=== PATIENT | female | born 1975 | race Caucasian/White ===

== ENCOUNTER 2021-02-03 18:10 | Inpatient (IN) ==
[2021-02-03] MEDS ORDERED: ASPIRIN 325 MG TABLET PO STA (18:57)
[2021-02-03] MEDS ORDERED: FUROSEMIDE 100 MG/10 ML VIAL IV STA (18:57)
[2021-02-03] MEDS ORDERED: MORPHINE 2 MG/1 ML SYRINGE IV STA (18:57)
[2021-02-03] MEDS ORDERED: ONDANSETRON 4 MG/2 ML VIAL IV STA (18:57)
[2021-02-03] MEDS ORDERED: ALBUTEROL NEB SOLN 5 MG/ML 20 ML/BOTTLE CONT NEB SCH (19:00)
[2021-02-03 19:11] LABS: Basophils % 0.4 % (0.0-0.8); Eosinophils % 0.1 % (0.00-10.9); Hemoglobin 13.2 GM/DL (12.0-16.0); Immature Granulocytes % 4.7 %; Immature Granulocytes Absolute 0.38 #; Lymphocytes % 12.1 % (21.3-54.2); Mean Corpuscular HGB Conc 34.7 GM/DL (32-36); Mean Corpuscular Volume 87.6 FL (87-102); Mean Platelet Volume 10.1 FL (9.6-12.0); Monocytes % 7.5 % (1.7-12.7); NRBC # 0.22 10*3/uL; Neutrophils % 75.2 % (38.7-73.9); Platelet Count 255 T/CUMM (130-400); Red Blood Count 4.34 MC/CUMM (3.8-5.5); Red Cell Distribution Width 14.1 % (9.3-17.3); White Blood Count 8.1 T/CUMM (4-12)
[2021-02-03 19:28] LABS: Albumin 3.1 G/DL (3.4-5.0); Bilirubin,Total 0.8 MG/DL (0.20-1.00); Calcium 8.7 MG/DL (8.5-10.1); Free T4 (Free Thyroxine) 1.21 NG/DL (0.76-1.46); Thyroid Stimulating Hormone 0.566 uIU/ml (0.358-3.74); Total Protein 5.7 G/DL (6.4-8.2)
[2021-02-03 19:35] LABS: Potassium 2.1 MMOL/L (3.5-5.1)
[2021-02-03] MEDS ORDERED: POTASSIUM CHLORIDE RIDER 10 MEQ/100 ML PREMIX IV ONE ×2 (19:46→19:47)
[2021-02-03] MEDS ORDERED: hydrALAZINE 20 MG/1 ML VIAL IV STA (19:58)
[2021-02-03] MEDS ORDERED: SPIRONOLACTONE 100 MG TABLET PO ONE (20:03)
[2021-02-03] MEDS ORDERED: POTASSIUM CHLORIDE 20 MEQ TABLET PO STA (20:04)
[2021-02-03] MEDS ORDERED: MAGNESIUM SULF RIDER 2 GM/50 ML PREMIX IV ONE (20:04)
[2021-02-03] MEDS ORDERED: DEXTROSE 50% 25 GM/50 ML VIAL IV PRN (20:08)
[2021-02-03] MEDS ORDERED: GLUCAGON 1 MG VIAL IM PRN (20:08)
[2021-02-03] MEDS ORDERED: ONDANSETRON 4 MG/2 ML VIAL IV PRN (20:08)
[2021-02-03] MEDS ORDERED: traZODone 50 MG TABLET PO PRN (20:11)
[2021-02-03] MEDS ORDERED: DOCUSATE SODIUM 100 MG CAPSULE PO PRN (20:11)
[2021-02-03 20:27] LABS: Bilirubin,Urine Negative (Negative); Blood, Urine Negative (Negative); Glucose,Urine (UA) >=500 mg/dL (Negative); Hyaline Casts,Urine 3 /LPF (0-3); Ketones,Urine Negative (Negative); Nitrite,Urine Negative (Negative); Protein,Urine Negative; RBC,Urine <1 /HPF (0-4); Squamous Epithelial Cell,Urine Occasional /HPF (0-10); Urine Appearance CLEAR (Clear); Urine Color Yellow (Yellow); Urine Specific Gravity 1.008 (1.001-1.035); Urine Urobilinogen < 2.0 EU/DL (0.2-1.0)
[2021-02-03] MEDS ORDERED: SPIRONOLACTONE 50 MG TABLET PO ONE (20:30)
[2021-02-03] MEDS ORDERED: SPIRONOLACTONE 50 MG TABLET PO SCH (21:00)
[2021-02-03] MEDS ORDERED: INSULIN GLARGINE 100 UNIT/ML SUBCUT SCH (21:00)
[2021-02-03 21:40] LABS: Calcium 8.9 MG/DL (8.5-10.1); Osmolality,Calculated 294.1 MOS/KG (273-304)
[2021-02-03 21:46] LABS: Potassium 1.9 MMOL/L (3.5-5.1)
[2021-02-03] MEDS ORDERED: POTASSIUM CHLORIDE 20 MEQ TABLET PO ONE (22:07)
[2021-02-03] MEDS: ACETYLCYSTEINE 600 MG CAPSULE PO SCH (22:23)
[2021-02-03] MEDS: LOSARTAN 25 MG TABLET PO SCH (22:23)
[2021-02-03] MEDS: carvediloL 25 MG TABLET PO SCH (22:24)
[2021-02-03] MEDS: ENOXAPARIN 40 MG/0.4 ML SYRINGE SUBCUT SCH (22:24)
[2021-02-03] MEDS: busPIRone 5 MG TABLET PO SCH (22:28)
[2021-02-03] MEDS: INSULIN REGULAR 100 UNIT/ML SUBCUT SCH (23:01)
[2021-02-03] MEDS: SODIUM CHLOR 0.45% KCL 20 MEQ 20 MEQ/1,000 ML BAG IV SCH (23:04)
[2021-02-04] MEDS: ALBUTEROL/IPRATROPIUM 3 ML NEB RESP TX SCH ×4 (00:22→19:10)
[2021-02-04 02:12] LABS: Basophils % 0.3 % (0.0-0.8); Hematocrit 35.6 VOL% (35.7-47.0); Hemoglobin 12.2 GM/DL (12.0-16.0); Immature Granulocytes % 3.3 %; Immature Granulocytes Absolute 0.24 #; Lymphocytes # 0.9 10*3/uL (1.4-4.0); Lymphocytes % 11.6 % (21.3-54.2); Mean Corpuscular HGB Conc 34.3 GM/DL (32-36); Mean Corpuscular Volume 88.6 FL (87-102); Mean Platelet Volume 9.7 FL (9.6-12.0); Monocytes % 9.3 % (1.7-12.7); NRBC # 0.15 10*3/uL; Neutrophils % 75.5 % (38.7-73.9); Platelet Count 230 T/CUMM (130-400); Red Blood Count 4.02 MC/CUMM (3.8-5.5); Red Cell Distribution Width 14.2 % (9.3-17.3); White Blood Count 7.3 T/CUMM (4-12)
[2021-02-04 02:31] LABS: Risk Ratio 5.47
[2021-02-04 02:45] LABS: Calcium 7.9 MG/DL (8.5-10.1); Osmolality,Calculated 298.1 MOS/KG (273-304)
[2021-02-04 02:50] LABS: Potassium 2.2 MMOL/L (3.5-5.1)
[2021-02-04] MEDS ORDERED: POTASSIUM CHLORIDE 20 MEQ TABLET PO ONE (02:55)
[2021-02-04 06:40] LABS: Calcium 7.9 MG/DL (8.5-10.1); Osmolality,Calculated 294.3 MOS/KG (273-304)
[2021-02-04 06:44] LABS: Potassium 2.1 MMOL/L (3.5-5.1)
[2021-02-04] MEDS: POTASSIUM CHLORIDE 20 MEQ TABLET PO PRN (06:59)
[2021-02-04] MEDS ORDERED: metFORMIN 500 MG TABLET PO SCH (08:00)
[2021-02-04] MEDS: busPIRone 5 MG TABLET PO SCH ×2 (08:57→21:32)
[2021-02-04] MEDS: carvediloL 25 MG TABLET PO SCH ×2 (08:57→21:32)
[2021-02-04] MEDS: INSULIN REGULAR 100 UNIT/ML SUBCUT SCH ×4 (08:57→21:31)
[2021-02-04] MEDS: POTASSIUM CHLORIDE 20 MEQ TABLET PO SCH ×3 (08:57→21:32)
[2021-02-04] MEDS: LOSARTAN 25 MG TABLET PO SCH ×2 (08:58→21:32)
[2021-02-04] MEDS: CITALOPRAM 20 MG TABLET PO SCH (08:58)
[2021-02-04] MEDS: ACETYLCYSTEINE 600 MG CAPSULE PO SCH ×2 (10:00→21:31)
[2021-02-04] MEDS ORDERED: INSULIN GLARGINE 100 UNIT/ML SUBCUT SCH (21:00)
[2021-02-04] MEDS: ENOXAPARIN 40 MG/0.4 ML SYRINGE SUBCUT SCH (21:30)
[2021-02-05] MEDS: SODIUM CHLOR 0.45% KCL 20 MEQ 20 MEQ/1,000 ML BAG IV SCH (00:08)
[2021-02-05] MEDS: ALBUTEROL/IPRATROPIUM 3 ML NEB RESP TX SCH ×4 (00:41→19:08)
[2021-02-05 05:17] LABS: Basophils % 0.4 % (0.0-0.8); Eosinophils % 0.1 % (0.00-10.9); Hemoglobin 12.2 GM/DL (12.0-16.0); Lymphocytes % 15.6 % (21.3-54.2); Mean Corpuscular HGB Conc 33.9 GM/DL (32-36); Mean Corpuscular Volume 92.1 FL (87-102); Mean Platelet Volume 9.6 FL (9.6-12.0); Monocytes % 8.2 % (1.7-12.7); Neutrophils % 69.7 % (38.7-73.9); Platelet Count 213 T/CUMM (130-400); Red Blood Count 3.91 MC/CUMM (3.8-5.5); Red Cell Distribution Width 14.6 % (9.3-17.3); White Blood Count 6.7 T/CUMM (4-12)
[2021-02-05 05:32] LABS: Calcium 8.1 MG/DL (8.5-10.1); Osmolality,Calculated 289.3 MOS/KG (273-304); Potassium 3.2 MMOL/L (3.5-5.1)
[2021-02-05 05:41] LABS: Band Neutrophils 3 % (0-10); Hypochromasia 1+; Lymphocytes 13 % (20-55); Microcytosis 1+; Nucleated Red Blood Cells 2 (0-5); Platelet Estimate Adequate; Segmented Neutrophils 78 % (50-85); Total Cells Counted 100
[2021-02-05] MEDS ORDERED: DIAZEPAM 5 MG TABLET PO ONE (09:25)
[2021-02-05] MEDS: INSULIN REGULAR 100 UNIT/ML SUBCUT SCH ×4 (10:38→22:43)
[2021-02-05] MEDS: CITALOPRAM 20 MG TABLET PO SCH (12:42)
[2021-02-05] MEDS: busPIRone 5 MG TABLET PO SCH ×2 (12:42→22:43)
[2021-02-05] MEDS: ACETYLCYSTEINE 600 MG CAPSULE PO SCH ×2 (12:43→22:42)
[2021-02-05] MEDS: carvediloL 25 MG TABLET PO SCH ×2 (12:43→22:43)
[2021-02-05] MEDS: SODIUM CHLORIDE 0.45% 1,000 ML IV SCH (12:43)
[2021-02-05] MEDS: POTASSIUM CHLORIDE 20 MEQ TABLET PO SCH ×2 (12:43→22:42)
[2021-02-05] MEDS: LOSARTAN 25 MG TABLET PO SCH (12:44)
[2021-02-05] MEDS: ACETAMINOPHEN 325 MG TABLET PO PRN (14:54)
[2021-02-05] MEDS: POTASSIUM CHLORIDE 20 MEQ TABLET PO PRN ×3 (14:54→18:04)
[2021-02-05] MEDS: metFORMIN 500 MG TABLET PO SCH (17:08)
[2021-02-05] MEDS: ENOXAPARIN 40 MG/0.4 ML SYRINGE SUBCUT SCH (22:43)
[2021-02-05] MEDS: INSULIN GLARGINE 100 UNIT/ML SUBCUT SCH (22:44)
[2021-02-06] MEDS: ALBUTEROL/IPRATROPIUM 3 ML NEB RESP TX SCH ×4 (00:32→20:16)
[2021-02-06 05:12] LABS: Basophils % 0.3 % (0.0-0.8); Eosinophils % 0.1 % (0.00-10.9); Hematocrit 37.2 VOL% (35.7-47.0); Hemoglobin 12.1 GM/DL (12.0-16.0); Immature Granulocytes % 6.9 %; Immature Granulocytes Absolute 0.54 #; Lymphocytes # 1.1 10*3/uL (1.4-4.0); Lymphocytes % 14.6 % (21.3-54.2); Mean Corpuscular HGB Conc 32.5 GM/DL (32-36); Mean Corpuscular Volume 93.5 FL (87-102); Mean Platelet Volume 10.4 FL (9.6-12.0); Monocytes % 6.8 % (1.7-12.7); NRBC # 0.15 10*3/uL; Neutrophils % 71.3 % (38.7-73.9); Platelet Count 214 T/CUMM (130-400); Red Blood Count 3.98 MC/CUMM (3.8-5.5); Red Cell Distribution Width 14.6 % (9.3-17.3); White Blood Count 7.8 T/CUMM (4-12)
[2021-02-06 05:44] LABS: Band Neutrophils 3 % (0-10); Eosinophils 1 % (0-10); Lymphocytes 12 % (20-55); Platelet Estimate Normal; Segmented Neutrophils 76 % (50-85); Total Cells Counted 100
[2021-02-06 05:50] LABS: Calcium 8.1 MG/DL (8.5-10.1); Osmolality,Calculated 286.4 MOS/KG (273-304); Potassium 3.8 MMOL/L (3.5-5.1)
[2021-02-06] MEDS: SODIUM CHLOR 0.45% KCL 20 MEQ 20 MEQ/1,000 ML BAG IV SCH ×2 (10:19→12:08)
[2021-02-06] MEDS: metFORMIN 500 MG TABLET PO SCH ×2 (10:21→17:03)
[2021-02-06] MEDS: ACETYLCYSTEINE 600 MG CAPSULE PO SCH ×2 (10:21→21:32)
[2021-02-06] MEDS: POTASSIUM CHLORIDE 20 MEQ TABLET PO PRN (10:21)
[2021-02-06] MEDS: busPIRone 5 MG TABLET PO SCH ×2 (10:22→21:32)
[2021-02-06] MEDS: carvediloL 25 MG TABLET PO SCH ×2 (10:22→21:32)
[2021-02-06] MEDS: LOSARTAN 50 MG TABLET PO SCH (10:22)
[2021-02-06] MEDS: CITALOPRAM 20 MG TABLET PO SCH (10:22)
[2021-02-06] MEDS: SODIUM CHLORIDE 0.45% 1,000 ML IV SCH (11:08)
[2021-02-06] MEDS: INSULIN REGULAR 100 UNIT/ML SUBCUT SCH ×4 (11:09→21:33)
[2021-02-06] MEDS: ENOXAPARIN 40 MG/0.4 ML SYRINGE SUBCUT SCH (21:33)
[2021-02-06] MEDS: INSULIN GLARGINE 100 UNIT/ML SUBCUT SCH (21:33)
[2021-02-06] MEDS: ACETAMINOPHEN 325 MG TABLET PO PRN (21:36)
[2021-02-07] MEDS: ALBUTEROL/IPRATROPIUM 3 ML NEB RESP TX SCH ×4 (01:01→19:54)
[2021-02-07 05:07] LABS: Basophils # 0.1 10*3/uL (0.0-0.2); Basophils % 0.7 % (0.0-0.8); Eosinophils % 0.1 % (0.00-10.9); Hematocrit 37.4 VOL% (35.7-47.0); Immature Granulocytes % 7.7 %; Immature Granulocytes Absolute 0.66 #; Lymphocytes # 1.2 10*3/uL (1.4-4.0); Mean Corpuscular HGB Conc 32.1 GM/DL (32-36); Mean Corpuscular Volume 94.9 FL (87-102); Mean Platelet Volume 9.6 FL (9.6-12.0); Monocytes % 6.8 % (1.7-12.7); NRBC # 0.16 10*3/uL; Neutrophils % 70.7 % (38.7-73.9); Platelet Count 222 T/CUMM (130-400); Red Blood Count 3.94 MC/CUMM (3.8-5.5); Red Cell Distribution Width 14.6 % (9.3-17.3); White Blood Count 8.5 T/CUMM (4-12)
[2021-02-07 05:21] LABS: Calcium 8.8 MG/DL (8.5-10.1); Osmolality,Calculated 286.1 MOS/KG (273-304)
[2021-02-07 05:48] LABS: Lymphocytes 17 % (20-55); Nucleated Red Blood Cells 2 (0-5); Segmented Neutrophils 76 % (50-85); Total Cells Counted 100
[2021-02-07 05:49] LABS: Hypochromasia 1+; Microcytosis 1+; Platelet Estimate Adequate
[2021-02-07] MEDS: amLODIPine 5 MG TABLET PO SCH (10:12)
[2021-02-07] MEDS: CITALOPRAM 20 MG TABLET PO SCH (10:12)
[2021-02-07] MEDS: DAPAGLIFLOZIN 10 MG TABLET PO SCH (10:12)
[2021-02-07] MEDS: ACETYLCYSTEINE 600 MG CAPSULE PO SCH ×2 (10:13→21:44)
[2021-02-07] MEDS: LOSARTAN 50 MG TABLET PO SCH (10:13)
[2021-02-07] MEDS: carvediloL 25 MG TABLET PO SCH ×2 (10:13→21:44)
[2021-02-07] MEDS: busPIRone 5 MG TABLET PO SCH ×2 (10:13→21:45)
[2021-02-07] MEDS: metFORMIN 500 MG TABLET PO SCH ×2 (10:13→17:12)
[2021-02-07] MEDS: INSULIN REGULAR 100 UNIT/ML SUBCUT SCH ×4 (10:14→21:46)
[2021-02-07] MEDS: SODIUM CHLORIDE 0.45% 1,000 ML IV SCH (11:13)
[2021-02-07] MEDS: SODIUM CHLOR 0.45% KCL 20 MEQ 20 MEQ/1,000 ML BAG IV SCH (11:20)
[2021-02-07] MEDS: hydrALAZINE 25 MG TABLET PO SCH ×2 (11:20→21:45)
[2021-02-07] MEDS ORDERED: INSULIN GLARGINE 100 UNIT/ML SUBCUT SCH ×2 (21:00)
[2021-02-07] MEDS: ACETAMINOPHEN 325 MG TABLET PO PRN (21:45)
[2021-02-08] MEDS: ALBUTEROL/IPRATROPIUM 3 ML NEB RESP TX SCH ×4 (01:29→18:22)
[2021-02-08 04:06] LABS: Basophils % 0.4 % (0.0-0.8); Eosinophils % 0.1 % (0.00-10.9); Hematocrit 38.6 VOL% (35.7-47.0); Hemoglobin 12.4 GM/DL (12.0-16.0); Immature Granulocytes % 7.7 %; Immature Granulocytes Absolute 0.74 #; Lymphocytes # 1.1 10*3/uL (1.4-4.0); Lymphocytes % 11.6 % (21.3-54.2); Mean Corpuscular HGB Conc 32.1 GM/DL (32-36); Mean Corpuscular Volume 94.4 FL (87-102); Mean Platelet Volume 9.7 FL (9.6-12.0); Monocytes % 6.1 % (1.7-12.7); NRBC # 0.24 10*3/uL; Neutrophils % 74.1 % (38.7-73.9); Platelet Count 223 T/CUMM (130-400); Red Blood Count 4.09 MC/CUMM (3.8-5.5); Red Cell Distribution Width 14.6 % (9.3-17.3); White Blood Count 9.6 T/CUMM (4-12)
[2021-02-08 04:27] LABS: Band Neutrophils 1 % (0-10); Hypochromasia 1+; Lymphocytes 17 % (20-55); Microcytosis 1+; Nucleated Red Blood Cells 3 (0-5); Osmolality,Calculated 287.1 MOS/KG (273-304); Platelet Estimate Adequate; Potassium 3.7 MMOL/L (3.5-5.1); Segmented Neutrophils 78 % (50-85); Total Cells Counted 100
[2021-02-08] MEDS ORDERED: SPIRONOLACTONE 25 MG TABLET PO SCH (11:00)
[2021-02-08] MEDS: busPIRone 5 MG TABLET PO SCH ×2 (11:14→21:09)
[2021-02-08] MEDS: carvediloL 25 MG TABLET PO SCH ×2 (11:14→21:09)
[2021-02-08] MEDS: metFORMIN 500 MG TABLET PO SCH ×2 (11:14→18:37)
[2021-02-08] MEDS: LOSARTAN 50 MG TABLET PO SCH (11:14)
[2021-02-08] MEDS: amLODIPine 5 MG TABLET PO SCH (11:14)
[2021-02-08] MEDS: hydrALAZINE 25 MG TABLET PO SCH (11:15)
[2021-02-08] MEDS: CITALOPRAM 20 MG TABLET PO SCH (11:15)
[2021-02-08] MEDS: ACETYLCYSTEINE 600 MG CAPSULE PO SCH (11:15)
[2021-02-08] MEDS: DAPAGLIFLOZIN 10 MG TABLET PO SCH (11:15)
[2021-02-08] MEDS: SODIUM CHLORIDE 0.45% 1,000 ML IV SCH (11:16)
[2021-02-08] MEDS: INSULIN REGULAR 100 UNIT/ML SUBCUT SCH ×4 (11:16→21:09)
[2021-02-08] MEDS ORDERED: INSULIN GLARGINE 100 UNIT/ML SUBCUT SCH (21:00)
[2021-02-09] MEDS: ALBUTEROL/IPRATROPIUM 3 ML NEB RESP TX SCH ×4 (01:20→19:00)
[2021-02-09 05:57] LABS: Basophils # 0.1 10*3/uL (0.0-0.2); Basophils % 0.6 % (0.0-0.8); Eosinophils % 0.1 % (0.00-10.9); Hematocrit 37.7 VOL% (35.7-47.0); Hemoglobin 12.3 GM/DL (12.0-16.0); Immature Granulocytes % 7.5 %; Immature Granulocytes Absolute 0.73 #; Lymphocytes # 1.3 10*3/uL (1.4-4.0); Mean Corpuscular HGB Conc 32.6 GM/DL (32-36); Mean Corpuscular Volume 93.3 FL (87-102); Monocytes % 6.8 % (1.7-12.7); NRBC # 0.18 10*3/uL; Platelet Count 207 T/CUMM (130-400); Red Blood Count 4.04 MC/CUMM (3.8-5.5); Red Cell Distribution Width 14.6 % (9.3-17.3); White Blood Count 9.8 T/CUMM (4-12)
[2021-02-09 06:26] LABS: Band Neutrophils 1 % (0-10); Hypochromasia Slight; Lymphocytes 11 % (20-55); Microcytosis 1+; Nucleated Red Blood Cells 2 (0-5); Segmented Neutrophils 82 % (50-85); Total Cells Counted 100
[2021-02-09 06:27] LABS: Platelet Estimate Normal; Polychromasia Slight
[2021-02-09 06:34] LABS: Calcium 8.8 MG/DL (8.5-10.1); Osmolality,Calculated 282.1 MOS/KG (273-304); Potassium 3.3 MMOL/L (3.5-5.1)
[2021-02-09] MEDS ORDERED: POTASSIUM CHLORIDE 20 MEQ TABLET PO ONE (08:52)
[2021-02-09] MEDS: metFORMIN 500 MG TABLET PO SCH ×2 (10:48→17:55)
[2021-02-09] MEDS: CITALOPRAM 20 MG TABLET PO SCH (10:48)
[2021-02-09] MEDS: DAPAGLIFLOZIN 10 MG TABLET PO SCH (10:49)
[2021-02-09] MEDS: amLODIPine 5 MG TABLET PO SCH (10:49)
[2021-02-09] MEDS: carvediloL 25 MG TABLET PO SCH ×2 (10:50→20:46)
[2021-02-09] MEDS: busPIRone 5 MG TABLET PO SCH ×2 (10:50→20:46)
[2021-02-09] MEDS: LOSARTAN 50 MG TABLET PO SCH (10:50)
[2021-02-09] MEDS: SPIRONOLACTONE 25 MG TABLET PO SCH (10:57)
[2021-02-09] MEDS: INSULIN REGULAR 100 UNIT/ML SUBCUT SCH ×4 (11:01→20:47)
[2021-02-09] MEDS: SODIUM CHLORIDE 0.45% 1,000 ML IV SCH (13:52)
[2021-02-09] MEDS: INSULIN GLARGINE 100 UNIT/ML SUBCUT SCH (20:47)
[2021-02-09] MEDS: ACETAMINOPHEN 325 MG TABLET PO PRN (20:51)
[2021-02-10] MEDS: ALBUTEROL/IPRATROPIUM 3 ML NEB RESP TX SCH ×4 (01:41→19:25)
[2021-02-10 05:31] LABS: Calcium 8.4 MG/DL (8.5-10.1); Osmolality,Calculated 284.1 MOS/KG (273-304); Potassium 3.5 MMOL/L (3.5-5.1)
[2021-02-10 05:46] LABS: Basophils # 0.1 10*3/uL (0.0-0.2); Eosinophils % 0.1 % (0.00-10.9); Hematocrit 40.9 VOL% (35.7-47.0); Hemoglobin 13.1 GM/DL (12.0-16.0); Immature Granulocytes % 7.8 %; Immature Granulocytes Absolute 0.73 #; Lymphocytes % 10.9 % (21.3-54.2); Mean Corpuscular Volume 98.1 FL (87-102); Mean Platelet Volume 11.1 FL (9.6-12.0); Monocytes % 7.2 % (1.7-12.7); NRBC # 0.18 10*3/uL; Platelet Count 129 T/CUMM (130-400); Red Blood Count 4.17 MC/CUMM (3.8-5.5); Red Cell Distribution Width 14.9 % (9.3-17.3); White Blood Count 9.4 T/CUMM (4-12)
[2021-02-10 06:26] LABS: Band Neutrophils 2 % (0-10); Hypochromasia Slight; Lymphocytes 11 % (20-55); Microcytosis 1+; Nucleated Red Blood Cells 1 (0-5); Segmented Neutrophils 79 % (50-85); Total Cells Counted 100
[2021-02-10] MEDS: amLODIPine 5 MG TABLET PO SCH (09:21)
[2021-02-10] MEDS: CITALOPRAM 20 MG TABLET PO SCH (09:21)
[2021-02-10] MEDS: SPIRONOLACTONE 25 MG TABLET PO SCH (09:22)
[2021-02-10] MEDS: LOSARTAN 50 MG TABLET PO SCH (09:22)
[2021-02-10] MEDS: metFORMIN 500 MG TABLET PO SCH ×2 (09:22→16:55)
[2021-02-10] MEDS: DAPAGLIFLOZIN 10 MG TABLET PO SCH (09:22)
[2021-02-10] MEDS: carvediloL 25 MG TABLET PO SCH ×2 (09:22→21:12)
[2021-02-10] MEDS: INSULIN REGULAR 100 UNIT/ML SUBCUT SCH ×4 (09:22→21:12)
[2021-02-10] MEDS: busPIRone 5 MG TABLET PO SCH ×2 (09:22→21:12)
[2021-02-10] MEDS ORDERED: SPIRONOLACTONE 25 MG TABLET PO ONE (09:58)
[2021-02-10] MEDS: SODIUM CHLORIDE 0.45% 1,000 ML IV SCH (10:15)
[2021-02-10 14:35] LABS: Cancer Antigen 19-9 25.89 U/ML (0-35); Carcinoembryonic Antigen 3.1 NG/ML (0.0-5.0)
[2021-02-10] MEDS: INSULIN GLARGINE 100 UNIT/ML SUBCUT SCH (21:12)
[2021-02-11] MEDS: ALBUTEROL/IPRATROPIUM 3 ML NEB RESP TX SCH ×2 (00:41→07:33)
[2021-02-11 06:23] LABS: Calcium 8.8 MG/DL (8.5-10.1); Osmolality,Calculated 292.7 MOS/KG (273-304); Potassium 3.3 MMOL/L (3.5-5.1)
[2021-02-11] MEDS ORDERED: POTASSIUM CHLORIDE 20 MEQ TABLET PO ONE (07:20)
[2021-02-11] MEDS: DAPAGLIFLOZIN 10 MG TABLET PO SCH (08:43)
[2021-02-11] MEDS: carvediloL 25 MG TABLET PO SCH (08:43)
[2021-02-11] MEDS: CITALOPRAM 20 MG TABLET PO SCH (08:44)
[2021-02-11] MEDS: LOSARTAN 50 MG TABLET PO SCH (08:44)
[2021-02-11] MEDS: busPIRone 5 MG TABLET PO SCH (08:44)
[2021-02-11] MEDS: metFORMIN 500 MG TABLET PO SCH (08:44)
[2021-02-11] MEDS ORDERED: SPIRONOLACTONE 100 MG TABLET PO SCH (09:00)
[2021-02-11] MEDS ORDERED: SPIRONOLACTONE 50 MG TABLET PO SCH (09:00)
[2021-02-11] MEDS: INSULIN REGULAR 100 UNIT/ML SUBCUT SCH (09:28)
[2021-02-11 10:55] VITALS: BP 148/82
[2021-02-11 11:46] LABS: Cancer Antigen 125 16 U/mL (<46); Cancer Antigen 15-3 < 8.0 U/mL (<30)
== END 2021-02-11 10:57 | disposition home or self-care (01) | DRG 191 ==
LOC: N.ED 18:10 → N.EDINP 20:00 → N.TELES 20:37
PROVIDERS: ADMIT Hospitalist; ATTEND Hospitalist

== ENCOUNTER 2021-03-22 07:08 | Inpatient (IN) ==
[2021-03-22 10:37] LABS: Basophils % 0.5 % (0.0-0.8); Hematocrit 33.4 VOL% (35.7-47.0); Hemoglobin 11.1 GM/DL (12.0-16.0); Immature Granulocytes % 14.1 %; Immature Granulocytes Absolute 0.92 #; Lymphocytes # 0.3 10*3/uL (1.4-4.0); Lymphocytes % 4.6 % (21.3-54.2); Mean Corpuscular HGB Conc 33.2 GM/DL (32-36); Mean Corpuscular Volume 94.6 FL (87-102); Mean Platelet Volume 9.7 FL (9.6-12.0); Monocytes % 0.3 % (1.7-12.7); Neutrophils % 80.5 % (38.7-73.9); Platelet Count 136 T/CUMM (130-400); Red Blood Count 3.53 MC/CUMM (3.8-5.5); Red Cell Distribution Width 14.3 % (9.3-17.3); White Blood Count 6.5 T/CUMM (4-12)
[2021-03-22 10:39] LABS: Bacteria,Urine Many /HPF (Few); Bilirubin,Urine Negative (Negative); Blood, Urine Negative (Negative); Glucose,Urine (UA) Negative (Negative); Hyaline Casts,Urine 1 /LPF (0-3); Ketones,Urine Negative (Negative); Mucus,Urine Occasional /LPF (Occasional); Nitrite,Urine Positive (Negative); Protein,Urine 30 MG/DL; RBC,Urine 3 /HPF (0-4); Squamous Epithelial Cell,Urine Occasional /HPF (0-10); Urine Appearance Slightly Hazy (Clear); Urine Color Yellow (Yellow); Urine Specific Gravity 1.024 (1.001-1.035); Urine Urobilinogen < 2.0 EU/DL (0.2-1.0)
[2021-03-22 11:02] LABS: Albumin 2.6 G/DL (3.4-5.0); Bilirubin,Total 0.4 MG/DL (0.20-1.00); Calcium 8.3 MG/DL (8.5-10.1); Potassium 2.7 MMOL/L (3.5-5.1); Total Protein 4.8 G/DL (6.4-8.2)
[2021-03-22] MEDS ORDERED: DEXTROSE 50% 25 GM/50 ML VIAL IV STA (11:06)
[2021-03-22] MEDS ORDERED: DEXTROSE 50% 25 GM/50 ML SYRINGE IV ONE (11:12)
[2021-03-22] MEDS: DEXTROSE 5% NACL 0.45% 1,000 ML IV SCH (11:22)
[2021-03-22 11:28] LABS: Anisocytosis 1+; Band Neutrophils 8 % (0-10); Lymphocytes 4 % (20-55); Macrocytosis Slight; Platelet Estimate Adequate; Segmented Neutrophils 87 % (50-85); Total Cells Counted 100
[2021-03-22] MEDS ORDERED: DEXTROSE 50% 25 GM/50 ML SYRINGE IV STA (11:51)
[2021-03-22] MEDS ORDERED: ACETAMINOPHEN 325 MG TABLET PO PRN (15:37)
[2021-03-22] MEDS ORDERED: MAGNESIUM SULF RIDER 4 GM/100 ML PREMIX IV PRN (15:37)
[2021-03-22] MEDS ORDERED: MAGNESIUM SULF RIDER 2 GM/50 ML PREMIX IV PRN (15:37)
[2021-03-22] MEDS: busPIRone 10 MG TABLET PO SCH ×2 (16:57→20:41)
[2021-03-22] MEDS: POTASSIUM CHLORIDE 10 MEQ TABLET PO SCH ×2 (16:57→20:41)
[2021-03-22 18:21] LABS: Calcium 8.1 MG/DL (8.5-10.1); Osmolality,Calculated 281.4 MOS/KG (273-304); Potassium 2.8 MMOL/L (3.5-5.1)
[2021-03-22] MEDS: POTASSIUM CHLORIDE RIDER 10 MEQ/100 ML PREMIX IV PRN ×4 (19:14→23:43)
[2021-03-22] MEDS: hydrALAZINE 20 MG/1 ML VIAL IV PRN (19:44)
[2021-03-22] MEDS: DOCUSATE SODIUM 100 MG CAPSULE PO SCH (20:41)
[2021-03-22] MEDS: DEXAMETHASONE 0.5 MG TABLET PO SCH (20:41)
[2021-03-22] MEDS: carvediloL 25 MG TABLET PO SCH (20:41)
[2021-03-22] MEDS: METOCLOPRAMIDE 5 MG TABLET PO SCH (20:41)
[2021-03-22] MEDS: metFORMIN 500 MG TABLET PO SCH (20:41)
[2021-03-23] MEDS: POTASSIUM CHLORIDE RIDER 10 MEQ/100 ML PREMIX IV PRN (02:26)
[2021-03-23 05:46] LABS: Eosinophils % 0.3 % (0.00-10.9); Hematocrit 31.5 VOL% (35.7-47.0); Hemoglobin 10.4 GM/DL (12.0-16.0); Immature Granulocytes % 18.2 %; Immature Granulocytes Absolute 0.56 #; Lymphocytes # 0.3 10*3/uL (1.4-4.0); Lymphocytes % 8.4 % (21.3-54.2); Mean Corpuscular Volume 96.3 FL (87-102); Mean Platelet Volume 10.1 FL (9.6-12.0); Monocytes % 0.6 % (1.7-12.7); Neutrophils % 71.5 % (38.7-73.9); Platelet Count 104 T/CUMM (130-400); Red Blood Count 3.27 MC/CUMM (3.8-5.5); Red Cell Distribution Width 14.3 % (9.3-17.3); White Blood Count 3.1 T/CUMM (4-12)
[2021-03-23 05:52] LABS: Albumin 2.2 G/DL (3.4-5.0); Bilirubin,Total 0.9 MG/DL (0.20-1.00); Calcium 7.7 MG/DL (8.5-10.1); Osmolality,Calculated 284.1 MOS/KG (273-304); Potassium 2.7 MMOL/L (3.5-5.1); Total Protein 4.2 G/DL (6.4-8.2)
[2021-03-23 06:25] LABS: Anisocytosis 1+; Band Neutrophils 6 % (0-10); Lymphocytes 3 % (20-55); Metamyelocytes 1 %; Platelet Estimate Adequate; Segmented Neutrophils 90 % (50-85); Tear Drop Cells Few; Total Cells Counted 100
[2021-03-23 06:26] LABS: Macrocytosis Slight; Smudge Cells Few
[2021-03-23] MEDS ORDERED: POTASSIUM CHLORIDE 20 MEQ TABLET PO ONE ×2 (08:27→08:43)
[2021-03-23] MEDS: POTASSIUM CHLORIDE 10 MEQ TABLET PO SCH ×4 (09:26→20:44)
[2021-03-23] MEDS: FUROSEMIDE 20 MG TABLET PO SCH (09:27)
[2021-03-23] MEDS: METOCLOPRAMIDE 5 MG TABLET PO SCH ×2 (09:27→20:43)
[2021-03-23] MEDS: busPIRone 10 MG TABLET PO SCH ×3 (09:27→20:43)
[2021-03-23] MEDS: carvediloL 25 MG TABLET PO SCH ×2 (09:27→20:44)
[2021-03-23] MEDS: DOCUSATE SODIUM 100 MG CAPSULE PO SCH ×2 (09:27→20:43)
[2021-03-23] MEDS: metFORMIN 500 MG TABLET PO SCH ×2 (09:27→20:44)
[2021-03-23] MEDS: SPIRONOLACTONE 25 MG TABLET PO SCH (09:28)
[2021-03-23] MEDS: LOSARTAN 50 MG TABLET PO SCH (09:28)
[2021-03-23] MEDS: CITALOPRAM 20 MG TABLET PO SCH (09:34)
[2021-03-23] MEDS: SODIUM CHLOR 0.45% KCL 20 MEQ 20 MEQ/1,000 ML BAG IV SCH ×4 (10:14→23:28)
[2021-03-23] MEDS: DIPHENOXYLATE/ATROPINE 2.5-0.025 MG TABLET PO PRN ×2 (10:52→21:25)
[2021-03-23] MEDS: DEXTROSE 5% NACL 0.45% 1,000 ML IV SCH ×2 (11:22→14:42)
[2021-03-23] MEDS ORDERED: LIDOCAINE 1% 20 ML VIAL MISC INJ ONE (11:25)
[2021-03-23] MEDS: PROMETHAZINE 25 MG TABLET PO PRN (13:24)
[2021-03-23] MEDS: PANTOPRAZOLE 40 MG TABLET PO SCH (14:18)
[2021-03-23] MEDS ORDERED: [UNRECOGNIZED DRUG - OTHER] PO SCH (15:00)
[2021-03-23] MEDS: DEXAMETHASONE 0.5 MG TABLET PO SCH (20:43)
[2021-03-24] MEDS: DIPHENOXYLATE/ATROPINE 2.5-0.025 MG TABLET PO PRN (03:35)
[2021-03-24] MEDS: SODIUM CHLOR 0.45% KCL 20 MEQ 20 MEQ/1,000 ML BAG IV SCH ×3 (03:35→17:53)
[2021-03-24] MEDS: DEXTROSE 5% NACL 0.45% 1,000 ML IV SCH ×2 (04:12→17:52)
[2021-03-24 05:47] LABS: Albumin 2.1 G/DL (3.4-5.0); Bilirubin,Total 0.4 MG/DL (0.20-1.00); Calcium 7.5 MG/DL (8.5-10.1); Osmolality,Calculated 277.4 MOS/KG (273-304)
[2021-03-24 05:48] LABS: Potassium 2.3 MMOL/L (3.5-5.1)
[2021-03-24 06:07] LABS: Hematocrit 29.6 VOL% (35.7-47.0); Hemoglobin 9.8 GM/DL (12.0-16.0); Immature Granulocytes % 9.5 %; Immature Granulocytes Absolute 0.06 #; Lymphocytes # 0.3 10*3/uL (1.4-4.0); Lymphocytes % 47.6 % (21.3-54.2); Mean Corpuscular HGB Conc 33.1 GM/DL (32-36); Mean Corpuscular Volume 94.3 FL (87-102); Neutrophils % 42.9 % (38.7-73.9); Platelet Count 74 T/CUMM (130-400); Red Blood Count 3.14 MC/CUMM (3.8-5.5); Red Cell Distribution Width 13.6 % (9.3-17.3)
[2021-03-24 06:11] LABS: White Blood Count 0.6 T/CUMM (4-12)
[2021-03-24 06:41] LABS: Anisocytosis Slight; Lymphocytes 28 % (20-55); Platelet Estimate Decreased; Segmented Neutrophils 72 % (50-85); Smudge Cells Few; Total Cells Counted 100
[2021-03-24] MEDS ORDERED: POTASSIUM CHLORIDE 20 MEQ TABLET PO ONE ×2 (07:16→17:00)
[2021-03-24] MEDS ORDERED: MAGNESIUM SULF RIDER 2 GM/50 ML PREMIX IV PRN (08:29)
[2021-03-24] MEDS ORDERED: MAGNESIUM SULF RIDER 4 GM/100 ML PREMIX IV PRN (08:29)
[2021-03-24] MEDS: hydrALAZINE 20 MG/1 ML VIAL IV PRN (09:37)
[2021-03-24 09:39] LABS: Hematocrit 31.3 VOL% (35.7-47.0); Hemoglobin 10.6 GM/DL (12.0-16.0); Immature Granulocytes % 5.5 %; Immature Granulocytes Absolute 0.03 #; Lymphocytes # 0.3 10*3/uL (1.4-4.0); Lymphocytes % 56.4 % (21.3-54.2); Mean Corpuscular HGB Conc 33.9 GM/DL (32-36); Mean Corpuscular Volume 92.3 FL (87-102); Mean Platelet Volume 10.3 FL (9.6-12.0); Monocytes % 1.8 % (1.7-12.7); Neutrophils % 36.3 % (38.7-73.9); Platelet Count 76 T/CUMM (130-400); Red Blood Count 3.39 MC/CUMM (3.8-5.5); Red Cell Distribution Width 13.7 % (9.3-17.3)
[2021-03-24] MEDS: DOCUSATE SODIUM 100 MG CAPSULE PO SCH ×3 (09:39→22:32)
[2021-03-24] MEDS: FUROSEMIDE 20 MG TABLET PO SCH (09:39)
[2021-03-24] MEDS: METOCLOPRAMIDE 5 MG TABLET PO SCH ×2 (09:39→21:36)
[2021-03-24] MEDS: LOSARTAN 50 MG TABLET PO SCH (09:39)
[2021-03-24] MEDS: metFORMIN 500 MG TABLET PO SCH ×2 (09:39→21:37)
[2021-03-24] MEDS: carvediloL 25 MG TABLET PO SCH ×2 (09:39→22:33)
[2021-03-24] MEDS: busPIRone 10 MG TABLET PO SCH ×3 (09:40→21:36)
[2021-03-24] MEDS: CITALOPRAM 20 MG TABLET PO SCH (09:40)
[2021-03-24] MEDS: POTASSIUM CHLORIDE 10 MEQ TABLET PO SCH ×4 (09:40→21:36)
[2021-03-24] MEDS: PANTOPRAZOLE 40 MG TABLET PO SCH (09:40)
[2021-03-24] MEDS: SPIRONOLACTONE 25 MG TABLET PO SCH (09:40)
[2021-03-24] MEDS: DIPHENOXYLATE/ATROPINE 2.5-0.025 MG TABLET PO SCH ×3 (09:47→22:34)
[2021-03-24] MEDS: FILGRASTIM-SNDZ 480 MCG/0.8 ML SYRINGE SUBCUT SCH (09:48)
[2021-03-24 09:51] LABS: White Blood Count 0.6 T/CUMM (4-12)
[2021-03-24 10:16] LABS: Lymphocytes 24 % (20-55); Macrocytosis Slight; Platelet Estimate Decreased; Segmented Neutrophils 72 % (50-85); Target Cells Few; Total Cells Counted 100
[2021-03-24 10:17] LABS: Tear Drop Cells Few
[2021-03-24] MEDS ORDERED: ALPRAZolam 0.5 MG TABLET PO PRN (11:08)
[2021-03-24] MEDS: ONDANSETRON 4 MG/2 ML VIAL IV PRN ×2 (12:24→22:44)
[2021-03-24] MEDS: cefTRIAXone 1,000 MG in SODIUM CHLORIDE 0.9% 100 ML IV SCH (14:34)
[2021-03-24] MEDS: PROMETHAZINE 25 MG TABLET PO PRN ×2 (14:40→23:15)
[2021-03-24] MEDS: DEXAMETHASONE 0.5 MG TABLET PO SCH (21:38)
[2021-03-25] MEDS: DIPHENOXYLATE/ATROPINE 2.5-0.025 MG TABLET PO SCH ×4 (03:13→21:22)
[2021-03-25] MEDS: SODIUM CHLORIDE 0.9% 1,000 ML IV SCH ×2 (05:21→15:36)
[2021-03-25 05:37] LABS: Albumin 1.8 G/DL (3.4-5.0); Calcium 7.7 MG/DL (8.5-10.1); Potassium 2.6 MMOL/L (3.5-5.1)
[2021-03-25 06:36] LABS: Hematocrit 24.7 VOL% (35.7-47.0); Hemoglobin 8.1 GM/DL (12.0-16.0); Lymphocytes # 0.3 10*3/uL (1.4-4.0); Lymphocytes % 93.1 % (21.3-54.2); Mean Corpuscular HGB Conc 32.8 GM/DL (32-36); Mean Corpuscular Volume 96.1 FL (87-102); Mean Platelet Volume 11.3 FL (9.6-12.0); Neutrophils % 6.9 % (38.7-73.9); Platelet Count 40 T/CUMM (130-400); Red Blood Count 2.57 MC/CUMM (3.8-5.5); Red Cell Distribution Width 13.8 % (9.3-17.3)
[2021-03-25 06:37] LABS: White Blood Count 0.3 T/CUMM (4-12)
[2021-03-25 06:58] LABS: Lymphocytes 90 % (20-55); Platelet Estimate Decreased; Segmented Neutrophils 10 % (50-85); Total Cells Counted 100
[2021-03-25 06:59] LABS: Hypochromasia 1+
[2021-03-25] MEDS: METOCLOPRAMIDE 5 MG TABLET PO SCH (09:35)
[2021-03-25] MEDS: metFORMIN 500 MG TABLET PO SCH (09:35)
[2021-03-25] MEDS: POTASSIUM CHLORIDE 10 MEQ TABLET PO SCH (09:35)
[2021-03-25] MEDS: DOCUSATE SODIUM 100 MG CAPSULE PO SCH (09:35)
[2021-03-25] MEDS: PANTOPRAZOLE 40 MG TABLET PO SCH (09:35)
[2021-03-25] MEDS: busPIRone 10 MG TABLET PO SCH ×3 (09:35→21:22)
[2021-03-25] MEDS: CITALOPRAM 20 MG TABLET PO SCH (09:36)
[2021-03-25] MEDS: SPIRONOLACTONE 25 MG TABLET PO SCH (09:36)
[2021-03-25] MEDS: FILGRASTIM-SNDZ 480 MCG/0.8 ML SYRINGE SUBCUT SCH (09:36)
[2021-03-25] MEDS: FUROSEMIDE 20 MG TABLET PO SCH (09:36)
[2021-03-25] MEDS: ONDANSETRON 4 MG/2 ML VIAL IV PRN ×2 (09:50→19:04)
[2021-03-25] MEDS: carvediloL 25 MG TABLET PO SCH (10:06)
[2021-03-25] MEDS: LOSARTAN 50 MG TABLET PO SCH (10:06)
[2021-03-25] MEDS ORDERED: GLUCAGON 1 MG VIAL IM PRN (12:56)
[2021-03-25] MEDS ORDERED: DEXTROSE 50% 25 GM/50 ML SYRINGE IV PRN (12:56)
[2021-03-25] MEDS: POTASSIUM CHLORIDE 20 MEQ TABLET PO SCH ×5 (13:41→21:22)
[2021-03-25] MEDS: cefTRIAXone 1,000 MG in SODIUM CHLORIDE 0.9% 100 ML IV SCH (13:45)
[2021-03-25] MEDS: SODIUM CHLOR 0.45% KCL 20 MEQ 20 MEQ/1,000 ML BAG IV SCH (15:02)
[2021-03-25] MEDS: INSULIN REGULAR 100 UNIT/ML SUBCUT SCH (17:21)
[2021-03-25] MEDS: ALBUMIN 25% 25 GM/100 ML VIAL IV SCH (18:40)
[2021-03-25] MEDS: DEXAMETHASONE 0.5 MG TABLET PO SCH (21:22)
[2021-03-26] MEDS: ALBUMIN 25% 25 GM/100 ML VIAL IV SCH ×3 (03:04→21:10)
[2021-03-26] MEDS: DIPHENOXYLATE/ATROPINE 2.5-0.025 MG TABLET PO SCH ×2 (03:04→09:18)
[2021-03-26 07:08] LABS: Hematocrit 23.9 VOL% (35.7-47.0); Hemoglobin 7.6 GM/DL (12.0-16.0); Lymphocytes # 0.1 10*3/uL (1.4-4.0); Lymphocytes % 91.7 % (21.3-54.2); Mean Corpuscular HGB Conc 31.8 GM/DL (32-36); Mean Corpuscular Volume 98.8 FL (87-102); Mean Platelet Volume 11.9 FL (9.6-12.0); Monocytes % 8.3 % (1.7-12.7); Red Blood Count 2.42 MC/CUMM (3.8-5.5); Red Cell Distribution Width 14.4 % (9.3-17.3)
[2021-03-26 07:11] LABS: White Blood Count 0.1 T/CUMM (4-12)
[2021-03-26 07:12] LABS: Platelet Count 22 T/CUMM (130-400)
[2021-03-26 07:40] LABS: Albumin 2.3 G/DL (3.4-5.0); Bilirubin,Total 1.5 MG/DL (0.20-1.00); Calcium 8.3 MG/DL (8.5-10.1); Osmolality,Calculated 291.8 MOS/KG (273-304); Potassium 3.1 MMOL/L (3.5-5.1); Total Protein 5.2 G/DL (6.4-8.2)
[2021-03-26 08:16] LABS: Lymphocytes 90 % (20-55); Ovalocytes Few; Platelet Estimate Decreased; Tear Drop Cells Few
[2021-03-26 08:18] LABS: Total Cells Counted 10
[2021-03-26] MEDS: FILGRASTIM-SNDZ 480 MCG/0.8 ML SYRINGE SUBCUT SCH (09:07)
[2021-03-26] MEDS: INSULIN REGULAR 100 UNIT/ML SUBCUT SCH ×2 (09:07→17:04)
[2021-03-26] MEDS: busPIRone 10 MG TABLET PO SCH ×3 (09:08→21:07)
[2021-03-26] MEDS: FUROSEMIDE 20 MG TABLET PO SCH (09:08)
[2021-03-26] MEDS: POTASSIUM CHLORIDE 20 MEQ TABLET PO SCH ×4 (09:08→21:08)
[2021-03-26] MEDS: FAMOTIDINE 20 MG TABLET PO SCH (09:08)
[2021-03-26] MEDS: CITALOPRAM 20 MG TABLET PO SCH (09:18)
[2021-03-26] MEDS: POTASSIUM CHLORIDE RIDER 10 MEQ/100 ML PREMIX IV PRN ×4 (09:19→12:50)
[2021-03-26] MEDS ORDERED: DIPHENOXYLATE/ATROPINE 2.5-0.025 MG TABLET PO PRN (10:05)
[2021-03-26] MEDS ORDERED: SODIUM CHLORIDE 0.9% 1,000 ML IV PRN (10:07)
[2021-03-26] MEDS: ONDANSETRON 4 MG/2 ML VIAL IV PRN (11:50)
[2021-03-26] MEDS ORDERED: traMADol 50 MG TABLET PO PRN (13:29)
[2021-03-26] MEDS: cefTRIAXone 1,000 MG in SODIUM CHLORIDE 0.9% 100 ML IV SCH (14:24)
[2021-03-26] MEDS: FUROSEMIDE 40 MG/4 ML VIAL IV SCH (17:05)
[2021-03-26] MEDS ORDERED: methylPREDNISolone SOD SUC 40 MG/1 ML VIAL IV SCH (18:00)
[2021-03-26] MEDS: hydrALAZINE 20 MG/1 ML VIAL IV PRN (20:01)
[2021-03-26] MEDS: DEXAMETHASONE 0.5 MG TABLET PO SCH (21:07)
[2021-03-26] MEDS: hydrALAZINE 25 MG TABLET PO SCH (21:08)
[2021-03-27] MEDS: ONDANSETRON 4 MG/2 ML VIAL IV PRN (00:36)
[2021-03-27] MEDS ORDERED: MORPHINE 2 MG/1 ML SYRINGE IV PRN (02:30)
[2021-03-27] MEDS ORDERED: ALBUTEROL/IPRATROPIUM 3 ML NEB RESP TX ONE (02:30)
[2021-03-27] MEDS ORDERED: FUROSEMIDE 40 MG/4 ML VIAL IV ONE (02:30)
[2021-03-27] MEDS ORDERED: MORPHINE 2 MG/1 ML SYRINGE ONE (02:36)
[2021-03-27 05:18] LABS: Lymphocytes # 0.1 10*3/uL (1.4-4.0); Lymphocytes % 69.2 % (21.3-54.2); Mean Corpuscular HGB Conc 32.5 GM/DL (32-36); Mean Corpuscular Volume 95.2 FL (87-102); Monocytes % 7.7 % (1.7-12.7); NRBC # 0.03 10*3/uL; Neutrophils % 23.1 % (38.7-73.9); Red Cell Distribution Width 14.6 % (9.3-17.3)
[2021-03-27 05:30] LABS: Platelet Count 12 T/CUMM (130-400); White Blood Count 0.1 T/CUMM (4-12)
[2021-03-27 05:31] LABS: Hematocrit 27.7 VOL% (35.7-47.0); Red Blood Count 2.91 MC/CUMM (3.8-5.5)
[2021-03-27 05:34] LABS: Albumin 2.6 G/DL (3.4-5.0); Osmolality,Calculated 284.7 MOS/KG (273-304); Potassium 2.9 MMOL/L (3.5-5.1); Total Protein 6.1 G/DL (6.4-8.2)
[2021-03-27 05:49] LABS: Hypochromasia 1+; Lymphocytes 60 % (20-55); Nucleated Red Blood Cells 1 (0-5); Segmented Neutrophils 30 % (50-85); Target Cells Slight; Total Cells Counted 100
[2021-03-27 05:50] LABS: Macrocytosis Slight; Ovalocytes Slight; Platelet Estimate Decreased
[2021-03-27] MEDS: ALBUMIN 25% 25 GM/100 ML VIAL IV SCH (06:07)
[2021-03-27] MEDS: SODIUM CHLORIDE 0.9% 1,000 ML IV SCH ×3 (08:19→13:52)
[2021-03-27 08:35] VITALS: BP 136/85
[2021-03-27] MEDS ORDERED: POTASSIUM CHLORIDE RIDER 20 MEQ/100 ML PREMIX IV PRN (08:40)
[2021-03-27] MEDS: INSULIN REGULAR 100 UNIT/ML SUBCUT SCH (09:02)
[2021-03-27] MEDS: FUROSEMIDE 40 MG/4 ML VIAL IV SCH (09:06)
[2021-03-27] MEDS: hydrALAZINE 25 MG TABLET PO SCH (09:07)
[2021-03-27] MEDS: POTASSIUM CHLORIDE 20 MEQ TABLET PO SCH (09:07)
[2021-03-27] MEDS: FAMOTIDINE 20 MG TABLET PO SCH (09:23)
[2021-03-27] MEDS: busPIRone 10 MG TABLET PO SCH (09:23)
[2021-03-27] MEDS: FILGRASTIM-SNDZ 480 MCG/0.8 ML SYRINGE SUBCUT SCH (09:23)
[2021-03-27] MEDS: CITALOPRAM 20 MG TABLET PO SCH (09:23)
[2021-03-27] MEDS ORDERED: ALBUTEROL/IPRATROPIUM 3 ML NEB RESP TX PRN (10:03)
[2021-03-27] MEDS ORDERED: SODIUM CHLORIDE 0.9% 1,000 ML IV PRN (10:03)
[2021-03-27] MEDS ORDERED: VANCOMYCIN INJ 1,500 MG in SODIUM CHLORIDE 0.9% 500 ML IV ONE (10:12)
[2021-03-27] MEDS ORDERED: methylPREDNISolone SOD SUC 40 MG/1 ML VIAL IV SCH (10:30)
[2021-03-27] MEDS ORDERED: DIPHENOXYLATE/ATROPINE 2.5-0.025 MG TABLET PO SCH (10:30)
[2021-03-27] MEDS ORDERED: ALBUTEROL/IPRATROPIUM 3 ML NEB RESP TX SCH (11:00)
[2021-03-27] MEDS ORDERED: EPINEPHrine 1 MG/10 ML SYRINGE ONE (11:12)
[2021-03-27] MEDS ORDERED: ETOMIDATE 20 MG/10 ML VIAL IV ONE ×2 (11:12→11:29)
[2021-03-27] MEDS ORDERED: ROCURONIUM 100 MG/10 ML VIAL IV ONE (11:30)
[2021-03-27] MEDS ORDERED: VANCOMYCIN INJ 2,000 MG in SODIUM CHLORIDE 0.9% 500 ML IV SCH (13:00)
[2021-03-27] MEDS ORDERED: POTASSIUM CHLORIDE 10 MEQ TABLET PO SCH (13:00)
== END 2021-03-27 11:37 | disposition expired | DRG 622 ==
LOC: N.EDINP 07:08 → N.ED 07:08 → N.EDINP 14:59 → N.2W 15:35 → N.2E 03-24 11:52
PROVIDERS: ADMIT Family Medicine; ATTEND Family Medicine